=== PATIENT | male | born 1985 | race Native Hawaiian/Other Pacific Islander ===

== ENCOUNTER 2016-07-10 22:51 | Emergency (ER) | payer SELFPAY ==
[2016-07-10 23:09] VITALS: BP 162/100; RESP 20; TEMP 98; O2SAT 100
[2016-07-11 00:37] LABS: BASO % 0.7 % (0.0-2.0); EOS # 0.2 K/uL (0.0-0.7); EOS % 4.1 % (0.0-4.0); HEMATOCRIT 43.1 % (35.0-51.0); LYMPH # 1.5 K/uL (1.0-4.3); LYMPH % 27.2 % (20.0-40.0); MEAN CELL VOLUME 96.1 fL (80.0-94.0); MEAN CORPUSCULAR HEMOGLOBIN 31.8 pg (27.0-31.0); MEAN CORPUSCULAR HGB CONC 33.1 g/dL (33.0-37.0); MEAN PLATELET VOLUME 8.5 fL (7.2-11.7); MONO # 0.7 K/uL (0.0-0.8); MONO % 11.9 % (0.0-10.0); RED CELL DISTRIBUTION WIDTH 12.8 % (11.5-14.5); WHITE BLOOD COUNT 5.6 K/uL (4.8-10.8)
[2016-07-11] MEDS ORDERED: Piperacillin/Tazobact 3.375 gm 100 ML IV STA (00:46)
[2016-07-11 00:49] LABS: CHLORIDE 98 mmol/L (98-107); POTASSIUM 3.8 mmol/L (3.6-5.2); SODIUM 140 mmol/L (132-148)
[2016-07-11] MEDS ORDERED: Piperacillin/Tazobact 3.375 gm 100 ML IVPB ONE (00:50)
[2016-07-11] MEDS ORDERED: metroNIDAZOLE IV 500 mg/100 ml 100 ML ONE (00:50)
[2016-07-11 00:51] LABS: GFR AFRICAN-AMERICAN > 60
[2016-07-11 00:52] LABS: ALB/GLOB RATIO 1.4 (1.0-2.1); ALKALINE PHOSPHATASE 75 U/L (38-126); ALT/SGPT 47 U/L (21-72); AST/SGOT 34 U/L (17-59); BILIRUBIN,TOTAL 0.9 mg/dL (0.2-1.3); BLOOD UREA NITROGEN 11 mg/dL (9-20); CARBON DIOXIDE 27 mmol/L (22-30); GLUCOSE,RANDOM 100 mg/dL (75-110); TOTAL PROTEIN 8.1 g/dL (6.3-8.3)
[2016-07-11 00:53] LABS: CALCIUM 9.3 mg/dl (8.6-10.4)
[2016-07-11] MEDS ORDERED: metroNIDAZOLE IV 500 mg/100 ml 100 ML IV SCH (01:00)
--- NOTE | 2016-07-11 02:24 | C.PDOC ---
Time Seen by Provider: 07/10/16 23:05 Chief Complaint (Nursing): Bite Past Medical History Vital Signs: Last Vital Signs Temp 98 F 07/10/16 23:04 Pulse 82 07/10/16 23:04 Resp 20 07/10/16 23:04 BP 162/100 H 07/10/16 23:04 Pulse Ox 100 07/10/16 23:04 - Social History Hx Alcohol Use: No Hx Substance Use: No - Immunization History Hx Tetanus Toxoid Vaccination: No Hx Influenza Vaccination: No Hx Pneumococcal Vaccination: No ED Course And Treatment - Laboratory Results Result Diagrams: 07/11/16 00:32 07/11/16 00:32 O2 Sat by Pulse Oximetry: 100
--- NOTE | 2016-07-11 02:29 | C.PDOC ---
History Of Present Illness 31 year old male presents to the ED with complaints of sustaining a dog bite at 22:30 today. Patient states he was coming out of an elevator in his apartment when his neighbors dog jumped on him and bit his right hand. The dog's global process owner was present and said the dog is UTD with immunizations. Patient notes he is not UTD with Tetanus and denies any other injuries. Time Seen by Provider: 07/10/16 23:05 Chief Complaint (Nursing): Bite History Per: Patient History/Exam Limitations: no limitations Onset/Duration Of Symptoms: Hrs Current Symptoms Are (Timing): Still Present Severity: Mild - Animal Bite Description Of The Attack: Unprovoked Attack Description Of The Animal: Neighbor's Pet Reports Animal Appears: Well Reports Animal's Immunization Status: UTD Past Medical History Reviewed: Historical Data, Nursing Documentation, Vital Signs Vital Signs: Last Vital Signs Temp 98 F 07/10/16 23:04 Pulse 74 07/11/16 02:55 Resp 20 07/11/16 02:55 BP 162/100 H 07/10/16 23:04 Pulse Ox 100 07/11/16 02:56 - Medical History PMH: No Chronic Diseases Family History: States: Unknown Family Hx - Social History Hx Alcohol Use: No Hx Substance Use: No - Immunization History Hx Tetanus Toxoid Vaccination: No Hx Influenza Vaccination: No Hx Pneumococcal Vaccination: No Review Of Systems Except As Marked, All Systems Reviewed And Found Negative. Constitutional: Negative for: Fever, Chills Skin: Positive for: Other (+Dog bite) Physical Exam - Physical Exam Appears: Non-toxic, No Acute Distress Skin: Warm, Dry, Other (Right hand: 1.0 cm wound to the dorsal 2nd mid- metacarpal. +0.5 cm puncture wound to the medial aspect of the PIP joint on the 3rd finger. +0.5 puncture wound to the medial aspect of the PIP joint on the 4th finger. +Superficial puncture wound to the base of the 5th finger.) Head: Atraumatic, Normacephalic Eye(s): bilateral: Normal Inspection Oral Mucosa: Moist Extremity: Normal ROM, Capillary Refill (< 2 seconds), No Deformity, No Swelling Pulses: Left Radial: Normal, Right Radial: Normal, Left Dorsalis Pedis: Normal, Right Dorsalis Pedis: Normal Neurological/Psych: Oriented x3, Normal Speech, Normal Cognition, Normal Motor, Normal Sensation Gait: Steady ED Course And Treatment - Laboratory Results Result Diagrams: 07/11/16 00:32 07/11/16 00:32 O2 Sat by Pulse Oximetry: 100 (Room air) Pulse Ox Interpretation: Normal Procedure: Wound Repair - Time Out Time Out: Side verified, Site verified - Procedure Procedure: Wound Repair: Wound irrigated with sterile saline and betadine. Xeroform dressing applied - Consent Obtained Consent obtained: Verbal - Performed by Performed by: Mid-level Provider - Indications Indication(s):: Bite - Location Location:: Right, Hand Finger:: Right, Index (1.0 cm wound), Middle (0.5cm puncture wound), Ring (0.5 cm puncture wound), Little (Superficial wound to base of 5th finger) - Debris Debris:: None - Irrigated Irrigated with ml of normal saline: Pressure irrigation with 18 gauge catheter. - Patient tolerated procedure Patient Tolerated Procedure:: Well Medical Decision Making Medical Decision Making: Plan: -Right Hand X-ray -Blood work -Flagyl -Zosyn -Tetanus administered Progress: Hand xrays show no fractures or foreign bodies. IV Zosyn and Flagyl IV given. Multiple calls placed to Dr. Patterson (Hand surgeon). 02:10- case discussed with Dr. Patterson who states he is comfortable with the patient following up with him in his office in 2 days. Disposition - Disposition Referrals: Raeann Patterson MD [Provisional Staff] - Disposition: HOME/ ROUTINE Disposition Time: 02:30 Condition: GOOD Additional Instructions: Follow up with Dr. Patterson in 2 days without fail. CALL FOR THE APPOINTMENT TOMORROW. Return if worsened, Prescriptions: Amoxicillin/Clavulanate [Augmentin 875 MG-125 MG] 1 tab PO BID #20 tab Instructions: Animal Bite (ED) - Clinical Impression Clinical Impression: Dog bite - PA / [employer] / Resident Statement MD/DO has reviewed & agrees with the documentation as recorded. - Scribe Statement The provider has reviewed the documentation as recorded by the Scribe Shelley Ivey. All medical record entries made by the Scribe were at my direction and personally dictated by me. I have reviewed the chart and agree that the record accurately reflects my personal performance of the history, physical exam, medical decision making, and the department course for this patient. I have also personally directed, reviewed, and agree with the discharge instructions and disposition.
[2016-07-11 03:04] VITALS: PULSE 74
--- NOTE | 2016-07-11 10:19 | RAD ---
PROCEDURE: Right hand dated 07/10/2016 HISTORY: hand injury, bite through palm and 2nd finger COMPARISON: None. FINDINGS: BONES: Normal. No fracture. JOINTS: Normal. No dislocation. SOFT TISSUES: Normal. No evidence of foreign body or subcutaneous air OTHER FINDINGS: None. IMPRESSION: No evidence of acute displaced fracture nor dislocation. If symptoms persist, occult fracture or soft tissue injury suspected clinically, consider followup MRI
== END 2016-07-11 02:54 | disposition home or self-care (01) ==
LOC: C.ER 22:51
DX: S61.431A Puncture wound without foreign body of right hand, initial encounter (principal); W54.0XXA Bitten by dog, initial encounter; Y93.9 Activity, unspecified; Y92.038 Other place in apartment as the place of occurrence of the external cause
CPT/HCPCS: 73130; 80053; 85025; 90471; 90715; 96365; 96367; 99284; J2543